=== PATIENT | male | born 1960 | race African-American/Black ===

== ENCOUNTER 2021-05-28 16:40 | Inpatient (IN) | payer MEDICARE, MEDICAID ==
[~2021-05-28] VITALS: Ht 170.2 cm; Wt 40.8 kg
[2021-05-28 22:58] LABS: BASOPHILS % 0.8 % (0.0-2.0); EOSINOPHILS % 0.7 % (0.0-5.0); HEMATOCRIT. 36.1 % (42.0-52.0); HEMOGLOBIN. 12.2 g/dL (14.0-18.0); LYMPHOCYTES % 23.1 % (20.0-50.0); MEAN CORPUSCULAR HEMOGLOBIN 31.3 pg (28.0-32.0); MEAN CORPUSCULAR VOLUME 92.7 fL (80.0-94.0); MEAN PLATELET VOLUME 7.4 fl (7.4-10.4); MONOCYTES % 8.8 % (2.0-8.0); NEUTROPHILS % 66.6 % (40.0-76.0); PLATELET 328 x1000/uL (130-400); RED BLOOD CELL COUNT 3.89 mill/uL (4.7-6.1)
[2021-05-28 23:02] LABS: CHLORIDE 103 mEq/L (98-107)
[2021-05-28 23:05] LABS: PROTHROMBIN TIME 10.9 sec (9.6-11.0)
[2021-05-29] MEDS ORDERED: AMLODIPINE 5MG TABLET PO ONE
[2021-05-29] MEDS ORDERED: BACITRACIN/POLYMYXIN B SULFATE OINT 15GM TOP ONE (00:45)
[2021-05-29] MEDS: LORAZEPAM 2MG/ML CPJ IV PRN ×2 (05:20→11:02)
[2021-05-29] MEDS: DEXT 5%/0.45% NACL 1000ML 1,000 ML IV SCH ×2 (09:00→19:00)
[2021-05-29] MEDS ORDERED: ACETAMINOPHEN 325MG TABLET PO PRN (14:15)
[2021-05-29] MEDS ORDERED: MORPHINE SULFATE 2 MG/ML CPJ (NOT FOR IM USE) IV PRN (14:15)
[2021-05-29] MEDS ORDERED: ONDANSETRON HCL 4MG/2ML INJ IV PRN (14:15)
[2021-05-29 14:50] VITALS: BP 179/96
[2021-05-29] MEDS: AMLODIPINE 5MG TABLET PO SCH (16:22)
[2021-05-29] MEDS: CLONIDINE 0.1MG TABLET PO PRN (16:22)
[2021-05-29 20:00] VITALS: BP 107/53
[2021-05-29] MEDS: QUETIAPINE FUMARATE 25MG TABLET PO SCH (21:01)
[2021-05-30] VITALS: BP 110/59
[2021-05-30 04:00] VITALS: BP 145/77
[2021-05-30] MEDS: DEXT 5%/0.45% NACL 1000ML 1,000 ML IV SCH ×2 (05:00→15:53)
[2021-05-30 06:55] LABS: BASOPHILS % 0.2 % (0.0-2.0); EOSINOPHILS % 0.1 % (0.0-5.0); HEMATOCRIT. 38.5 % (42.0-52.0); HEMOGLOBIN. 13.1 g/dL (14.0-18.0); LYMPHOCYTES % 13.7 % (20.0-50.0); MEAN CORPUSCULAR HEMOGLOBIN 31.3 pg (28.0-32.0); MEAN CORPUSCULAR VOLUME 91.9 fL (80.0-94.0); MEAN PLATELET VOLUME 7.9 fl (7.4-10.4); MONOCYTES % 7.6 % (2.0-8.0); NEUTROPHILS % 78.4 % (40.0-76.0); PLATELET 335 x1000/uL (130-400); RED BLOOD CELL COUNT 4.19 mill/uL (4.7-6.1); RED CELL DISTRIBUTION WIDTH 14.5 % (11.6-14.6)
[2021-05-30 07:18] LABS: CHLORIDE 100 mEq/L (98-107)
[2021-05-30 07:28] LABS: LDL CHOLESTEROL 108 mg/dL (5-100)
[2021-05-30 07:29] LABS: HDL CHOLESTEROL 41 mg/dL (40-59)
[2021-05-30] MEDS: QUETIAPINE FUMARATE 25MG TABLET PO SCH ×2 (09:29→21:00)
[2021-05-30] MEDS: AMLODIPINE 5MG TABLET PO SCH (09:30)
[2021-05-30] MEDS: LORAZEPAM 2MG/ML CPJ IV PRN ×2 (09:30→13:33)
[2021-05-30] MEDS ORDERED: NALOXONE HCL 0.4MG/ML VIAL IV PRN (10:30)
[2021-05-30 16:00] VITALS: BP 140/70
[2021-05-30 20:00] VITALS: BP 108/68
[2021-05-30] MEDS: ATORVASTATIN CALCIUM 10MG TABLET PO SCH (21:00)
[2021-05-30 21:45] LABS: ETHANOL BLOOD < 10 mg/dL
[2021-05-30 21:51] LABS: T4 FREE 1.22 ng/dL (0.76-1.46)
[2021-05-30 22:08] LABS: FOLIC ACID (FOLATE) SERUM >20 ng/mL ng/mL (>5.38)
[2021-05-30 22:21] LABS: VITAMIN B12 SERUM 371 pg/mL (211-911)
[2021-05-31] VITALS: BP 106/58
[2021-05-31 04:00] VITALS: BP 104/68
[2021-05-31 08:00] VITALS: BP 122/70
[2021-05-31 08:22] LABS: BASOPHILS % 0.4 % (0.0-2.0); EOSINOPHILS % 0.7 % (0.0-5.0); HEMATOCRIT. 37.7 % (42.0-52.0); LYMPHOCYTES % 18.4 % (20.0-50.0); MEAN CORPUSCULAR HEMOGLOBIN 31.8 pg (28.0-32.0); MEAN CORPUSCULAR VOLUME 91.9 fL (80.0-94.0); MEAN PLATELET VOLUME 7.9 fl (7.4-10.4); MONOCYTES % 10.8 % (2.0-8.0); NEUTROPHILS % 69.7 % (40.0-76.0); PLATELET 299 x1000/uL (130-400); RED CELL DISTRIBUTION WIDTH 14.8 % (11.6-14.6)
[2021-05-31 08:34] LABS: CHLORIDE 102 mEq/L (98-107)
[2021-05-31 08:39] LABS: PHOSPHORUS 3.3 mg/dL (2.5-4.9)
[2021-05-31] MEDS: AMLODIPINE 5MG TABLET PO SCH (09:28)
[2021-05-31] MEDS: QUETIAPINE FUMARATE 25MG TABLET PO SCH (09:28)
[2021-05-31] MEDS: LORAZEPAM 2MG/ML CPJ IV PRN (15:10)
[2021-05-31 20:00] VITALS: BP 112/64
[2021-05-31] MEDS: QUETIAPINE FUMARATE 50MG TABLET PO SCH (20:29)
[2021-05-31] MEDS: ATORVASTATIN CALCIUM 10MG TABLET PO SCH (20:29)
[2021-05-31] MEDS: DEXT 5%/0.45% NACL 1000ML 1,000 ML IV SCH (21:00)
[2021-06-01] VITALS (7 sets, daily range): BP systolic 112–149; BP diastolic 62–95
[2021-06-01] MEDS: LORAZEPAM 2MG/ML CPJ IV PRN (01:02)
[2021-06-01] MEDS: DEXT 5%/0.45% NACL 1000ML 1,000 ML IV SCH ×2 (06:40→09:03)
[2021-06-01] MEDS: AMLODIPINE 5MG TABLET PO SCH (08:57)
[2021-06-01] MEDS ORDERED: QUETIAPINE FUMARATE 50MG TABLET PO SCH (09:00)
[2021-06-01] MEDS: CLONIDINE 0.1MG TABLET PO PRN (12:27)
[2021-06-01] MEDS: ATORVASTATIN CALCIUM 10MG TABLET PO SCH (20:28)
[2021-06-01] MEDS: QUETIAPINE FUMARATE 50MG TABLET PO SCH (20:28)
== END 2021-06-02 00:05 | DRG 91 ==
LOC: ER 16:40 → MICUSO 23:34 → 6WST 05-29 10:41
PROVIDERS: ADMIT Internal Medicine Nephrology; ATTEND Internal Medicine Nephrology
DX: G92.8 Other toxic encephalopathy (principal); E43 Unspecified severe protein-calorie malnutrition; Z68.1 Body mass index [BMI] 19.9 or less, adult; S00.81XA Abrasion of other part of head, initial encounter; S20.311A Abrasion of right front wall of thorax, initial encounter; F17.200 Nicotine dependence, unspecified, uncomplicated; E78.5 Hyperlipidemia, unspecified; F03.90 Unspecified dementia, unspecified severity, without behavioral disturbance, psychotic disturbance, mood disturbance, and anxiety; I10 Essential (primary) hypertension; Z20.822 Contact with and (suspected) exposure to COVID-19; F20.9 Schizophrenia, unspecified; W18.39XA Other fall on same level, initial encounter; Y93.89 Activity, other specified; Z86.73 Personal history of transient ischemic attack (TIA), and cerebral infarction without residual deficits; Y92.89 Other specified places as the place of occurrence of the external cause; Y99.8 Other external cause status; R26.81 Unsteadiness on feet
CPT/HCPCS: 36415; 70544; 70553; 71045; 73721; 80048; 80053; 80061; 80320; 82140; 82607; 82746; 83036; 83735; 84100; 84439; 84443; 84481; 84484; 85025; 86850; 86900; 87426; 92610; 93005; 93306; 93880; 93970; 97166; 99285; J2060; J2270; A4315; G0480

== ENCOUNTER 2022-05-08 09:37 | Emergency (ER) | payer MEDICARE, MEDICAID ==
[~2022-05-08] VITALS: Ht 172.7 cm; Wt 64.0 kg
[2022-05-08] MEDS: TETANUS, DIPHTHERIA, PERTUSSIS VAC/PF 0.5ML (>10YR OLD) IM ONE (10:22)
[2022-05-08] MEDS: ACETAMINOPHEN 325MG TABLET PO ONE (10:30)
[2022-05-08] MEDS ORDERED: ACET-2708 MT (11:50)
[2022-05-08 17:54] VITALS: BP 159/102
== END 2022-05-08 18:14 ==
LOC: ER 09:37 → SUPCPDRO 15:33 → ER 18:14
DX: S01.81XA Laceration without foreign body of other part of head, initial encounter (principal); I10 Essential (primary) hypertension; E78.00 Pure hypercholesterolemia, unspecified; Z13.9 Encounter for screening, unspecified; Z86.73 Personal history of transient ischemic attack (TIA), and cerebral infarction without residual deficits; Z86.59 Personal history of other mental and behavioral disorders; Z98.890 Other specified postprocedural states; W06.XXXA Fall from bed, initial encounter; Y93.89 Activity, other specified; Y92.89 Other specified places as the place of occurrence of the external cause; Y99.8 Other external cause status
CPT/HCPCS: 12011; 70486; 90471; 90715; 99285